=== PATIENT | female | born 1955 | race Caucasian/White ===

== ENCOUNTER → 2019-08-03 | Outpatient (CLI) | payer OTHER ==
--- NOTE | 2019-08-03 15:28 | RAD ---
Single view of the right hand and single view of the right thumb without comparison for right thumb pain. FINDINGS: There is no fracture, dislocation, or acute osseous abnormality. No radiopaque foreign bodies. Dystrophic calcification is seen at the first carpometacarpal joint laterally, likely due to distant healed injury. Similar changes at the third metacarpophalangeal joint are present. Remaining joints and soft tissues are grossly unremarkable. IMPRESSION: 1. No acute osseous abnormality. 2. Chronic changes of the first carpometacarpal joint and third metacarpophalangeal joint as described. Electronically signed by: Agustin Bae MD (08/03/2019 3:25 PM) [id number]
== END | disposition home or self-care (01) ==
LOC: RAD 13:39
PROVIDERS: ATTEND Physician Assistant
DX: M25.841 Other specified joint disorders, right hand (principal)
CPT/HCPCS: 73140

== ENCOUNTER → 2019-10-06 | Outpatient (CLI) | payer OTHER ==
[2019-10-06 09:25] LABS: BASO % 1 % (0-3); EOS # 0.1 x10^3/uL (0.0-0.7); EOS % 3 % (0-3); HEMATOCRIT 40.4 % (36.0-47.0); HEMOGLOBIN 13.6 g/dL (12.0-15.5); LYMPH # 1.9 x10^3/uL (1.0-4.8); LYMPH % 36 % (24-48); MEAN CORPUSCULAR HEMOGLOBIN 31 pg (25-35); MEAN CORPUSCULAR HGB CONC 34 g/dL (31-37); MEAN CORPUSCULAR VOLUME 91 fL (79-100); MONO # 0.3 x10^3/uL (0.0-1.1); MONO % 6 % (0-9); NEUT # 2.8 x10^3uL (1.8-7.7); NEUT % 54 % (31-73); PLATELET COUNT 249 x10^3/uL (140-400); RED BLOOD COUNT 4.43 x10^6/uL (3.50-5.40); RED CELL DISTRIBUTION WIDTH 13.3 % (11.5-14.5); WHITE BLOOD COUNT 5.3 x10^3/uL (4.0-11.0)
[2019-10-06 09:36] LABS: ALBUMIN 3.4 g/dL (3.4-5.0); ALBUMIN/GLOBULIN RATIO 0.9 (1.0-1.7); CALCIUM 9.4 mg/dL (8.5-10.1); CREATININE 0.9 mg/dL (0.6-1.0); GFR 63.7; POTASSIUM 4.4 mmol/L (3.5-5.1); TOTAL BILIRUBIN 0.5 mg/dL (0.2-1.0); TOTAL PROTEIN 7.2 g/dL (6.4-8.2)
[2019-10-07 00:07] LABS: HEMOGLOBIN A1C 10.7 % (4.8-5.6)
== END | disposition home or self-care (01) ==
LOC: LAB 08:20
PROVIDERS: ATTEND Family Medicine
DX: E11.69 Type 2 diabetes mellitus with other specified complication (principal); I10 Essential (primary) hypertension
CPT/HCPCS: 36415; 80053; 80061; 82043; 83036; 85025

== ENCOUNTER → 2021-05-08 | Outpatient (CLI) | payer OTHER ==
[2021-05-08 09:48] LABS: CALCIUM 9.5 mg/dL (8.5-10.1); CREATININE 0.7 mg/dL (0.6-1.0); GFR 84.5; POTASSIUM 4.8 mmol/L (3.5-5.1)
[2021-05-08 09:49] LABS: BASO % 1 % (0-3); EOS # 0.3 x10^3/uL (0.0-0.7); EOS % 4 % (0-3); HEMATOCRIT 41.6 % (36.0-47.0); LYMPH # 2.1 x10^3/uL (1.0-4.8); LYMPH % 32 % (24-48); MEAN CORPUSCULAR HEMOGLOBIN 31 pg (25-35); MEAN CORPUSCULAR HGB CONC 34 g/dL (31-37); MEAN CORPUSCULAR VOLUME 92 fL (79-100); MONO # 0.4 x10^3/uL (0.0-1.1); MONO % 6 % (0-9); NEUT # 3.6 x10^3uL (1.8-7.7); NEUT % 57 % (31-73); PLATELET COUNT 290 x10^3/uL (140-400); RED BLOOD COUNT 4.54 x10^6/uL (3.50-5.40); RED CELL DISTRIBUTION WIDTH 13.2 % (11.5-14.5); WHITE BLOOD COUNT 6.4 x10^3/uL (4.0-11.0)
[2021-05-09 00:07] LABS: HEMOGLOBIN A1C 10.9 % (4.8-5.6)
== END ==
LOC: LAB 08:36
PROVIDERS: ATTEND Physician Assistant
DX: E11.69 Type 2 diabetes mellitus with other specified complication (principal); I10 Essential (primary) hypertension
CPT/HCPCS: 36415; 80048; 83036; 85025

== ENCOUNTER → 2021-05-24 | Outpatient (CLI) | payer OTHER ==
--- NOTE | 2021-05-24 14:42 | RAD ---
EXAMINATION: XR KNEE _3 VIEWS_LT CLINICAL HISTORY: PAIN, TWISTING INJURY, X 1.5 WEEKS AGO. TECHNIQUE: XR KNEE _3 VIEWS_LT Number of Images/Views: 3 COMPARISON: None FINDINGS: Moderate medial and mild lateral compartment narrowing. Tricompartmental small marginal osteophytes. No acute fracture. Small joint effusion. IMPRESSION: Degenerative changes left knee as described, greatest in the medial compartment. Electronically signed by: Ricci Oliveros DO (05/24/2021 2:40 PM) [id number]
== END ==
LOC: RAD 11:12
PROVIDERS: ATTEND Physician Assistant
DX: M17.12 Unilateral primary osteoarthritis, left knee (principal); M25.762 Osteophyte, left knee; M25.862 Other specified joint disorders, left knee
CPT/HCPCS: 73562